=== PATIENT | female | born 1985 | race Asian ===

== ENCOUNTER 2020-06-18 09:08 | Inpatient (IN) ==
--- NOTE | 2020-06-18 09:55 | Emergency Department Note ---
Impression & Plan Confusion ED Provider Note Provider: Arnaud Wood MD DATE OF SERVICE: 06/18/2020 CHIEF COMPLAINT: Confusion and concentration issues HISTORY OF PRESENT ILLNESS: Patient is a 34-year-old female history of asthma and some seasonal allergies presenting here today with family friend reporting over the past approximately week or 2 onset of some confusion. Patient reports she just does not seem to be processing things is normally and having occasionally some difficulty with words in conversations. Evidently has been working fairly hard and not sleeping the best at night. Reports on this past Friday approximately 2 days ago did have a visit with Dr. Joyner at [facility] regarding this and started on low-dose 25 mg trazodone at night to help with sleep and initial thoughts were this is possibly sleep-related. Patient had some difficulty getting the appointment driving her car and as well as driving home to a condo per her report. Family friend verbalized that he was contacted the patient went to check on her at the patient's condo and the patient was having difficulty getting her car in the garage and having garage door closed on her car. This is highly uncharacteristic for the patient according both to the patient and her family friend. There is no history of similar reported in the past. Evident last 2 days has been staying with family friend and prickly overnight last night has been sleeping significantly better. Did on Friday night have a small fall out of bed but no significant trauma reported or significant head pain reported. No fevers reported or URI symptoms or neck pain. Patient denies significant numbness or tingling in the extremiti es or weakness in the extremities. Patient denies issues feeding herself but states her hands do feel may be just a little bit more clumsy. Denies acute visual changes or dizziness. Patient denies any nausea or abdominal episodes. Patient denies any drug or alcohol use. Denies any recent medication changes but did receive the Covid vaccine second dose several weeks ago although timing is a little bit unclear. Patient again has some slight limitation in clear history here. Patient denies a history of Covid. Patient denies significant caffeine usage but has a slight resting tremor has been present for some years. No significant family history of similar neurological presentations have been reported. REVIEW OF SYSTEMS: A total of 10 review of systems was obtained and negative except as stated above in the HPI. PAST MEDICAL HISTORY: As noted above MEDICATIONS: Reviewed home medication list FMH: Reported history of some skin issues. SOCIAL HISTORY: Works at the [employer], denies drug or alcohol use PHYSICAL EXAM: GENERAL: alert and oriented in no acute distress on stretcher although occasional little bit slow to respond to some questioning. Head: normocephalic and atraumatic EYES: No injection, discharge or icterus. PERRL, EOMI. NECK: Trachea midline. Supple. ENT: Mucous membranes pink and moist. LUNGS: Airway patent. No retractions. Breath sounds clear HEART: Regular rate and rhythm. No chest wall tenderness ABDOMEN: Soft and non-tender, without guarding or rebound. SKIN: Acyanotic, warm, dry, without rashes although some slight dry skin of the bilateral hands is noted. EXTREMITIES: Without swelling, tenderness or deformity NEUROLOGICAL: No aphasia the patient does have some slight deficits in clear recollection/memory of recent events as reported by family friend (this is a bit inconsistent on exam more pronounced and less pronounced at various times). No facial droop or slurred speech. Normal strength and tone in the extremities. Patient does have some difficulty with left [id number] and some ataxia here and actually had some difficulty understanding the directions but was able to perform this normally on the right hand. Rapid alternating movements of the bilateral hands without significant abnormality. Sensation to gross touch nor mal. No clonus appreciated in lower extremities. Psych: The patient denies any acute SI. She not responding to external stimuli does have some flattened affect. Denies hallucinations or voices. EK bpm normal sinus rhythm. No PVC or PAC. No acute ST segment elevation appreciated with a normal QTC. Right axis CONTINUOUS CARDIAC MONITORING: was ordered and showed a heart rate of 74 bpm in normal sinus rhythm GCS 15. Patient's laboratory studies and imaging reviewed. Differential includes Infection, dehydration, metabolic abnormality, hypo/hyperglycemia, electrolyte disturbance, anemia, hypoxia, cardiac sources, intracerebral event, toxicologic, neurologic, as well as other pathologies. IMPRESSION/MEDICAL DECISION MAKING: Patient is complaining of some mild recent cognitive delay and confusion issues. Left slight fall was noted the other day it was after the onset and unsure that this is truly significant to the recent illness. CT head was completed to exclude traumatic injury given she feel on Friday night however feel this is less likely. Patient denies any fever and is afebrile here. No significant infectious symptoms systemically been reported. Patient denies use of drugs or alcohol other substances that could be causing symptoms. Patient sleep is improved to the last night or 2 with the trazodone but other symptoms of some confusion have not. Does have some interesting issues with left [id number] as well as some difficulty at that time understanding it only with the left hand was able to do it well with the right hand. Broad differential and testing will be obtained including B12 level. Discussed with neurology ([facility] as the patient follows with [facility]) and an MRI with and without contrast will be obtained to exclude brain mass or other acute intracranial pathology. Does not appear to be experiencing meningeal signs or nuchal rigidity and I doubt this is acute bacterial meningitis. Patient while here did have some issues providing urine sample and she initially provided a sample of tap water. Patient did not appear to be suffering from acute serotonin syndrome on exam. Blood work without significant leukocytosis or anemia. Platelet count is normal. Negative . UDS negative. Thyroid function within normal limits. No signs of significant transaminitis. No severe electrolyte abnormality noted. Renal function at expected range. CT scan of the head without acute fractures or other intra-cranial abnormality noted. Patient was sent to MRI initially but evidently could not really comprehend the instructions and walked out of the magnet. Try to small amount of Ativan to see if this would help but patient still not able to follow commands and actually in the stretcher on the way back from MRI tried to jump out of the stretcher for the rim technician. Seen by neurology here in the emergency department. Neurology recommended given the change in mental status over the past week without other significant history obtaining the MRI with sedation if necessary and given the weekend factors infectious and was obtained without sedation today further observation in the hospital and the patient and patient's friend were in agreement with this plan. Did reach out with anesthesia who stated they should be able to form sedated MRI in the morning but were unable to perform this afternoon evening. No in-house psychiatric providers at this time of day when I called 3 S. Patient's presentation could very well be functional or psychiatric in nature however exclusion of organic medical process with MRI would be significantly helpful to ensure we do not miss a rare medical process. Hospitalist evaluated the patient and will further discuss with psychiatry. DIAGNOSIS: Confusion DISPOSITION: Hospitalist will evaluate Patient was agreeable with this plan. Past Med/Surg History Social History Smoking Status: Never smoker Hx Alcohol Use: No Hx Substance Use: No Preferred Language: Chinese Cleaning Technician Required: No Beliefs That Will Affect Care: None Current Living Situation: Other Current Living Situation Comment: With friend Jeannie Feels Safe at Home: Hesitant to Answer Assistive Devices: None Allergies Allergies Allergy/AdvReac Type Severity Reaction Status Date / Time No Known Allergies Allergy Unverified 06/18/20 10:02 Home Meds Home Medications Medication Instructions Recorded Confirmed trazodone 25 mg PO HS 06/18/20 06/18/20 Results & Data (ED) Vital Signs Vital Signs - 24 hr 06/18/20 09:13 06/18/20 09:57 06/18/20 10:24 Temperature 36.5 C Temperature Source Temporal Artery Scan Pulse Rate 87 73 Pulse Rate [Right] Pulse Rate from SpO2 Sensor 72 Pulse Rhythm [Right] Respiratory Rate 18 22 Respiratory Effort / Characteristics Non-Labored Respiratory Depth Normal Blood Pressure 121/78 123/78 Blood Pressure [Left Arm] Blood Pressure Mean 92 93 Blood Pressure Mean [Left Arm] Blood Pressure Position [Left Arm] Pulse Oximetry 97 98 96 Oxygen Delivery Method Room Air Room Air Sepsis Recent Fever Within 48 Hours No Sepsis New/Unexplained Change in Mental Status No Sepsis Action Taken by Nursing No Action Required 06/18/20 10:30 06/18/20 11:44 06/18/20 11:45 Temperature Temperature Source Pulse Rate 81 Pulse Rate [Right] Pulse Rate from SpO2 Sensor 73 76 Pulse Rhythm [Right] Respiratory Rate 20 Respiratory Effort / Characteristics Respiratory Depth Blood Pressure 122/85 116/88 Blood Pressure [Left Arm] Blood Pressure Mean 97 97 Blood Pressure Mean [Left Arm] Blood Pressure Position [Left Arm] Pulse Oximetry 100 98 98 Oxygen Delivery Method Sepsis Recent Fever Within 48 Hours Sepsis New/Unexplained Change in Mental Status Sepsis Action Taken by Nursing 06/18/20 12:00 06/18/20 13:30 06/18/20 13:31 Temperature Temperature Source Pulse Rate Pulse Rate [Right] 66 Pulse Rate from SpO2 Sensor 65 Pulse Rhythm [Right] Regular Respiratory Rate 18 Respiratory Effort / Characteristics Respiratory Depth Blood Pressure 129/89 Blood Pressure [Left Arm] 129/89 Blood Pressure Mean 102 Blood Pressure Mean [Left Arm] 102 Blood Pressure Position [Left Arm] Lying Pulse Oximetry 98 98 Oxygen Delivery Method Room Air Sepsis Recent Fever Within 48 Hours Sepsis New/Unexplained Change in Mental Status Sepsis Action Taken by Nursing 06/18/20 13:45 06/18/20 14:00 06/18/20 14:30 Temperature Temperature Source Pulse Rate 78 108 H 75 Pulse Rate [Right] Pulse Rate from SpO2 Sensor Pulse Rhythm [Right] Respiratory Rate 18 20 18 Respiratory Effort / Characteristics Respiratory Depth Blood Pressure Blood Pressure [Left Arm] Blood Pressure Mean Blood Pressure Mean [Left Arm] Blood Pressure Position [Left Arm] Pulse Oximetry Oxygen Delivery Method Sepsis Recent Fever Within 48 Hours Sepsis New/Unexplained Change in Mental Status Sepsis Action Taken by Nursing 06/18/20 14:33 06/18/20 15:50 Temperature Temperature Source Pulse Rate 81 Pulse Rate [Right] 74 Pulse Rate from SpO2 Sensor Pulse Rhythm [Right] Respiratory Rate 20 15 Respiratory Effort / Characteristics Respiratory Depth Blood Pressure 122/91 Blood Pressure [Left Arm] 120/80 Blood Pressure Mean 101 Blood Pressure Mean [Left Arm] 93 Blood Pressure Position [Left Arm] Pulse Oximetry 97 Oxygen Delivery Method Room Air Sepsis Recent Fever Within 48 Hours Sepsis New/Unexplained Change in Mental Status Sepsis Action Taken by Nursing Laboratory Data Result diagrams: 06/18/20 09:40 06/18/20 09:40 Lab Results 06/18/20 06/18/20 06/18/20 Range/Units 09:40 09:40 09:40 WBC 5.13 (4.8-10.8) K/uL RBC 4.76 (4.2-5.4) M/uL Hgb 14.9 (12.0-16.0) g/dL Hct 42.6 (37-47) % MCV 89.5 (80-100) fL MCH 31.3 (25-34) pg MCHC 35.0 (32-36) g/dL RDW Std Deviation 39.4 (36.4-46.3) fL RDW Coeff of Claudette 12.2 (11.5-14.5) % Plt Count 225 (130-400) K/uL MPV 9.3 (7.4-10.4) fL Immature Gran % (Auto) 0.4 % Neut % (Auto) 72.5 % Lymph % (Auto) 20.5 % Hendricks % (Auto) 5.8 % Eos % (Auto) 0.6 % Baso % (Auto) 0.2 % Neut # (Auto) 3.72 (1.4-6.5) K/uL Lymph # (Auto) 1.05 L (1.2-3.4) K/uL Hendricks # (Auto) 0.30 (0.11-0.59) K/uL Eos # (Auto) 0.03 (0-0.5) K/uL Baso # (Auto) 0.01 (0-0.2) K/uL Immature Gran # (Auto) 0.02 (0.00-0.02) K/uL Sodium 139 (136-145) mmol/L Potassium 3.8 (3.5-5.1) mmol/L Chloride 107 (98-107) mmol/L Carbon Dioxide 31 (21-32) mmol/L Anion Gap 2.0 L (3-11) BUN 11 (7-18) mg/dl Creatinine 0.72 (0.6-1.2) mg/dl Est Cr Clr Drug Dosing 86.4 ml/min Est GFR ( Amer) 128.4 Est GFR (Non-Af Amer) 110.8 BUN/Creatinine Ratio 14.9 (10-20) Glucose 76 (70-99) mg/dl Calcium 9.2 (8.5-10.1) mg/dl Magnesium 2.4 (1.8-2.4) mg/dl Total Bilirubin 0.7 (0.2-1) mg/dl AST 13 L (15-37) U/L ALT 17 (12-78) U/L Alkaline Phosphatase 53 (45-117) U/L Total Protein 7.9 (6.4-8.2) gm/dl Albumin 4.2 (3.4-5.0) gm/dl Globulin 3.7 (2.5-4.0) gm/dl Albumin/Globulin Ratio 1.1 (0.9-2) Vitamin B12 TSH 0.796 (0.300-4.500) uIu/ml HCG, Qual Negative (Negative) Urine Color Urine Appearance (Clear) Urine pH (4.5-7.5) Ur Specific Harmon (1.000-1.030) Urine Protein (Negative) Urine Glucose (UA) (Negative) Urine Ketones (Negative) Urine Blood (Negative) Urine Nitrite (Negative) Urine Bilirubin (Negative) Urine Urobilinogen (Negative) Ur Leukocyte Esterase (Negative) Urine WBC (Auto) (0-5) /hpf Urine RBC (Auto) (0-4) /hpf U Hyaline Cast (Auto) (0-5) /lpf U Epithel Cells (Auto) (0-5) /lpf Urine Bacteria (Auto) (Negative) Urine Yeast Urine Opiates Screen (Neg) Ur Methadone, Qual (Neg) Urine Barbiturates (Neg) Ur Phencyclidine (PCP) (Neg) U Amphetamin/Meth Scrn (Neg) MDMA (Ecstasy) Screen (Neg) U Benzodiazepines Scrn (Neg) Ur Cocaine Metabolite (Neg) U Marijuana (THC) Screen (Neg) COVID-19 Eval Order SARS-CoV-2 (PCR) (Negative) Influenza Type A (PCR) (Neg) Influenza Type B (PCR) (Neg) RSV (RT-PCR) (Neg) 06/18/20 06/18/20 06/18/20 Range/Units 10:12 10:17 10:17 WBC (4.8-10.8) K/uL RBC (4.2-5.4) M/uL Hgb (12.0-16.0) g/dL Hct (37-47) % MCV (80-100) fL MCH (25-34) pg MCHC (32-36) g/dL RDW Std Deviation (36.4-46.3) fL RDW Coeff of Claudette (11.5-14.5) % Plt Count (130-400) K/uL MPV (7.4-10.4) fL Immature Gran % (Auto) % Neut % (Auto) % Lymph % (Auto) % Hendricks % (Auto) % Eos % (Auto) % Baso % (Auto) % Neut # (Auto) (1.4-6.5) K/uL Lymph # (Auto) (1.2-3.4) K/uL Hendricks # (Auto) (0.11-0.59) K/uL Eos # (Auto) (0-0.5) K/uL Baso # (Auto) (0-0.2) K/uL Immature Gran # (Auto) (0.00-0.02) K/uL Sodium (136-145) mmol/L Potassium (3.5-5.1) mmol/L Chloride (98-107) mmol/L Carbon Dioxide (21-32) mmol/L Anion Gap (3-11) BUN (7-18) mg/dl Creatinine (0.6-1.2) mg/dl Est Cr Clr Drug Dosing ml/min Est GFR ( Amer) Est GFR (Non-Af Amer) BUN/Creatinine Ratio (10-20) Glucose (70-99) mg/dl Calcium (8.5-10.1) mg/dl Magnesium (1.8-2.4) mg/dl Total Bilirubin (0.2-1) mg/dl AST (15-37) U/L ALT (12-78) U/L Alkaline Phosphatase (45-117) U/L Total Protein (6.4-8.2) gm/dl Albumin (3.4-5.0) gm/dl Globulin (2.5-4.0) gm/dl Albumin/Globulin Ratio (0.9-2) Vitamin B12 Cancelled TSH (0.300-4.500) uIu/ml HCG, Qual (Negative) Urine Color Yellow Urine Appearance Clear (Clear) Urine pH 7.5 (4.5-7.5) Ur Specific Harmon 1.014 (1.000-1.030) Urine Protein Negative (Negative) Urine Glucose (UA) Negative (Negative) Urine Ketones Negative (Negative) Urine Blood 2+ H (Negative) Urine Nitrite Negative (Negative) Urine Bilirubin Negative (Negative) Urine Urobilinogen Negative (Negative) Ur Leukocyte Esterase 2+ H (Negative) Urine WBC (Auto) 10-30 H (0-5) /hpf Urine RBC (Auto) 0-4 (0-4) /hpf U Hyaline Cast (Auto) 1-5 (0-5) /lpf U Epithel Cells (Auto) >30 H (0-5) /lpf Urine Bacteria (Auto) 1+ H (Negative) Urine Yeast Not Reportable Urine Opiates Screen Neg (Neg) Ur Methadone, Qual Neg (Neg) Urine Barbiturates Neg (Neg) Ur Phencyclidine (PCP) Neg (Neg) U Amphetamin/Meth Scrn Neg (Neg) MDMA (Ecstasy) Screen Neg (Neg) U Benzodiazepines Scrn Neg (Neg) Ur Cocaine Metabolite Neg (Neg) U Marijuana (THC) Screen Neg (Neg) COVID-19 Eval Order SARS-CoV-2 (PCR) (Negative) Influenza Type A (PCR) (Neg) Influenza Type B (PCR) (Neg) RSV (RT-PCR) (Neg) 06/18/20 06/18/20 06/18/20 Range/Units 10:59 14:25 14:25 WBC (4.8-10.8) K/uL RBC (4.2-5.4) M/uL Hgb (12.0-16.0) g/dL Hct (37-47) % MCV (80-100) fL MCH (25-34) pg MCHC (32-36) g/dL RDW Std Deviation (36.4-46.3) fL RDW Coeff of Claudette (11.5-14.5) % Plt Count (130-400) K/uL MPV (7.4-10.4) fL Immature Gran % (Auto) % Neut % (Auto) % Lymph % (Auto) % Hendricks % (Auto) % Eos % (Auto) % Baso % (Auto) % Neut # (Auto) (1.4-6.5) K/uL Lymph # (Auto) (1.2-3.4) K/uL Hendricks # (Auto) (0.11-0.59) K/uL Eos # (Auto) (0-0.5) K/uL Baso # (Auto) (0-0.2) K/uL Immature Gran # (Auto) (0.00-0.02) K/uL Sodium (136-145) mmol/L Potassium (3.5-5.1) mmol/L Chloride (98-107) mmol/L Carbon Dioxide (21-32) mmol/L Anion Gap (3-11) BUN (7-18) mg/dl Creatinine (0.6-1.2) mg/dl Est Cr Clr Drug Dosing ml/min Est GFR ( Amer) Est GFR (Non-Af Amer) BUN/Creatinine Ratio (10-20) Glucose (70-99) mg/dl Calcium (8.5-10.1) mg/dl Magnesium (1.8-2.4) mg/dl Total Bilirubin (0.2-1) mg/dl AST (15-37) U/L ALT (12-78) U/L Alkaline Phosphatase (45-117) U/L Total Protein (6.4-8.2) gm/dl Albumin (3.4-5.0) gm/dl Globulin (2.5-4.0) gm/dl Albumin/Globulin Ratio (0.9-2) Vitamin B12 Cancelled TSH (0.300-4.500) uIu/ml HCG, Qual (Negative) Urine Color Urine Appearance (Clear) Urine pH (4.5-7.5) Ur Specific Harmon (1.000-1.030) Urine Protein (Negative) Urine Glucose (UA) (Negative) Urine Ketones (Negative) Urine Blood (Negative) Urine Nitrite (Negative) Urine Bilirubin (Negative) Urine Urobilinogen (Negative) Ur Leukocyte Esterase (Negative) Urine WBC (Auto) (0-5) /hpf Urine RBC (Auto) (0-4) /hpf U Hyaline Cast (Auto) (0-5) /lpf U Epithel Cells (Auto) (0-5) /lpf Urine Bacteria (Auto) (Negative) Urine Yeast Urine Opiates Screen (Neg) Ur Methadone, Qual (Neg) Urine Barbiturates (Neg) Ur Phencyclidine (PCP) (Neg) U Amphetamin/Meth Scrn (Neg) MDMA (Ecstasy) Screen (Neg) U Benzodiazepines Scrn (Neg) Ur Cocaine Metabolite (Neg) U Marijuana (THC) Screen (Neg) COVID-19 Eval Order [facility] at [facility] SARS-CoV-2 (PCR) NEGATIVE (Negative) Influenza Type A (PCR) Negative (Neg) Influenza Type B (PCR) Negative (Neg) RSV (RT-PCR) Negative (Neg) Administered Medications Multivitamins 10 ml/ Thiamine HCl 100 mg/ Folic Acid 1 mg/Sodium Chloride 1,011.2 mls @ 1,011.2 mls/hr IV .Q1H ONE Stop: 06/18/20 18:59 Last Admin: 06/18/20 18:25 Dose: 1,011.2 mls/hr Documented by: [id number] Discontinued Medications Lorazepam (Ativan) 0.5 mg in 1 mls @ 1 mls/min IV NOW STA Stop: 06/18/20 12:40 Last Admin: 06/18/20 12:46 Dose: 1 mls/min Documented by: [id number] Olanzapine (Olanzapine Zydis 5 Mg Orally Dis. Tab) 5 mg PO ONE ONE Stop: 06/18/20 15:40 Last Admin: 06/18/20 15:50 Dose: 5 mg Documented by: [id number] Discharge Plan Visit Data Chief Complaint: Neuro Symptoms/Deficit Stated Complaint: CONFUSION, COGNITIVE PROBLEM, MOTOR MOVEMENT ED Provider: Arnaud Wood Discharge Problem: Confusion Patient Disposition: Admitted As Inpatient Discharge Instructions Interventions: ED Discharge Assessment Last Done: 06/18/20 16:52
[2020-06-18 10:02] LABS: Basophils # (auto) 0.01 K/uL (0-0.2); Basophils % (auto) 0.2 %; Eosinophils # (auto) 0.03 K/uL (0-0.5); Eosinophils % (auto) 0.6 %; Hematocrit (blood only) 42.6 % (37-47); Hemoglobin 14.9 g/dL (12.0-16.0); Immature Granulocytes # (auto) 0.02 K/uL (0.00-0.02); Immature Granulocytes % (auto) 0.4 %; Lymphocytes # (auto) 1.05 K/uL (1.2-3.4); Lymphocytes % (auto) 20.5 %; Mean Corpuscular Hemoglobin 31.3 pg (25-34); Mean Corpuscular Volume 89.5 fL (80-100); Mean Platelet Volume 9.3 fL (7.4-10.4); Monocytes % (auto) 5.8 %; Neutrophils # (auto) 3.72 K/uL (1.4-6.5); Neutrophils % (auto) 72.5 %; Platelet Count 225 K/uL (130-400); RDW Coefficient of Variation 12.2 % (11.5-14.5); RDW Standard Deviation 39.4 fL (36.4-46.3); Red Blood Count 4.76 M/uL (4.2-5.4); White Blood Count 5.13 K/uL (4.8-10.8)
[2020-06-18 10:14] LABS: Pregnancy Test, Serum Negative (Negative)
--- NOTE | 2020-06-18 10:18 | XRay Report ---
XR chest 1V portable HISTORY: 34 years-old Female weakness acute weakness COMPARISON: None TECHNIQUE: Portable AP view of the chest FINDINGS: Cardiomediastinal and hilar silhouettes are within normal limits. No pneumothorax, pleural effusion, airspace consolidation or overt pulmonary edema. The bones of the chest appear grossly intact. IMPRESSION: No acute process. ACT 112: Negative or not required by law. The above report was generated using voice recognition software. It may contain grammatical, syntax o r spelling errors. Electronically signed by: Thanh Reddy M.D. 06/18/2020 10:16 AM
[2020-06-18 10:27] LABS: Albumin Globulin Ratio 1.1 (0.9-2); Albumin Level 4.2 gm/dl (3.4-5.0); BUN Creatinine Ratio 14.9 (10-20); Bilirubin,Total 0.7 mg/dl (0.2-1); Calcium 9.2 mg/dl (8.5-10.1); Creatinine Clr Calc Pharmacy 86.4 ml/min; Est GFR (African American) 128.4; Est GFR (Non-African American) 110.8; Globulin 3.7 gm/dl (2.5-4.0); Magnesium 2.4 mg/dl (1.8-2.4); Potassium 3.8 mmol/L (3.5-5.1); Thyroid Stimulating Hormone 0.796 uIu/ml (0.300-4.500); Total Protein 7.9 gm/dl (6.4-8.2)
[2020-06-18 10:39] LABS: Appearance Urine Clear (Clear); Bilirubin Urine Negative (Negative); Blood Urine 2+ (Negative); Color Urine Yellow; Epithelial Cell Urine Auto >30 /lpf (0-5); Glucose Urine UA Negative (Negative); Ketones Urine Negative (Negative); Leukocyte Esterase Urine 2+ (Negative); Nitrite Urine Negative (Negative); Protein Urine Negative (Negative); RBC Urine Automated 0-4 /hpf (0-4); Specific Gravity Urine 1.014 (1.000-1.030); Urobilinogen Urine Negative (Negative); pH Urine 7.5 (4.5-7.5)
[2020-06-18 11:04] LABS: Bacteria Urine Automated 1+ (Negative)
[2020-06-18 11:15] LABS: Amphetamines+Metham, Urine Neg (Neg); Barbiturates, Urine Neg (Neg); Benzodiazepine, Urine Neg (Neg); Cocaine, Urine Neg (Neg); MDMA (Ecstacy), Urine Neg (Neg); Methadone, Urine Neg (Neg); Opiate, Urine Neg (Neg); Phencyclidine, Urine Neg (Neg)
--- NOTE | 2020-06-18 11:25 | Neurology Consultation ---
Date of Consultation June 18, 2020 Assessment & Plan (1) Altered mental status: Brooklynn Beverly is a 34yo woman w/ PMH of asthma and seasonal allergies who p/t [facility] with subacute onset of confusion, poor sleep, mild ataxia and difficulty performing ADLs. # Subacute AMS a/w ataxia: c/f underlying metabolic/toxic cause vs encephalitis (autoimmune, unlikely infectious given time course of symptom onset over several weeks). Recommend admission as she will need sedation to safely get MRI brain and LP performed to complete workup of organic causes. - MRI brain w/ and w/o to look for signs of autoimmune encephalitis - B12, TSH, UDS, basic labs. If this is unremarkable, would also check thiamine, ammonia, heavy metals and strongly consider obtaining an LP with cell counts, glucose, protein, CSF biofire, autoimmune encephalitis panel. - routine EEG if above unremarkable to r/o NCSE or seizure tendency - would also obtain a psych consult as this could potentially represent depression with psychosis and functional tremor Thank you for this interesting consult. Plan of care discussed with primary team. Please call or text with questions. History of Present Illness History of Present Illness Brooklynn Beverly is a 34yo woman w/ PMH of asthma and seasonal allergies who p/t [facility] with subacute onset of confusion, poor sleep, mild ataxia and difficulty performing ADLs. In the ED, she was afebrile, BP 122/85, heart rate 81, respiratory rate 20, satting 100% on room air. Labs notable for WBC 5.13, hemoglobin 14.9 with MCV 89.5, platelets 225, BMP within normal with GFR 110.8, LFTs within normal, calcium/magnesium within normal, glucose 76, TSH within normal, urine negative, B12 pending, UA possible UTI given positive bacteria and leukoesterase but no nitrates, UDS negative. Chest x-ray unremarkable. CTH shows no hemorrhage or hypodensities. Unable to tolerate MRI (kept jumping out of scanner even with mild sedation/ativan). On examination, she reports that she is worried about COVID brain fog and nightmares that started after she got the COVID vaccine. Denies actually ever having COVID that she is aware of. Also notes that she has been having issues with poor sleep, poor PO intake and new onset tremor in her arms and legs that makes it difficult to do daily activities. Notes that she was started on trazodone recently with worsening of nightmares. Extremely tangential and would sometimes not respond to questions appropriately. She does endorse feeling sad at times but could not elaborate and became tangential. Denies any recent stressors. Denies taking any supplements, illicits. Allergies Allergy/AdvReac Type Severity Reaction Status Date / Time No Known Allergies Allergy Unverified 06/18/20 10:02 Home Medications Medication Instructions Recorded Confirmed Type trazodone 25 mg PO HS 06/18/20 06/18/20 History Patient History Social History Smoking Status: Never smoker Feels Safe at Home: Yes Review of Systems Review of Systems: 14 point review of systems completed and negative except as in HPI. Exam (Neuro) Physical Exam: General Exam: GEN: NAD, sitting in bed. HEENT: No conjunctival injection, no rhinorrhea. CV: RRR, no peripheral edema PULM: Nonlabored respirations on room air. Neuro Exam: MS: Awake and Alert. Oriented to person, place, and month/year. Speech fluent and appropriate without dysarthria or paraphasic errors. Language intact including naming, comprehension, repetition. Cognition and memory mildly impaired. Very inattentive, tangential. No neglect. CN: Visual guy full. No extinction to double simultaneous stimuli. No optic disc edema on fundoscopic exam. PERRLA OU. EOMI without nystagmus. Facial sensation intact to LT. Facial muscles full and symmetric. Hearing intact to conversation. Shoulder shrug normal. Tongue midline. MOTOR: Normal bulk and tone. No pronator drift. BUE strength 5/5 at deltoids, biceps, triceps, wrist flexors and extensors, and hand grasp bilaterally. BLE strength 5/5 at iliopsoas, hamstrings, quadriceps, tibialis anterior, and gastrocnemius bilaterally. REFLEXES: 2+ at biceps, triceps, brachioradialis, 2+ patella and Achilles bilaterally. Flexor plantar responses bilaterally. SENSORY: Intact to LT without extinction to double simultaneous stimuli. Vibration intact throughout. COORDINATION: Mild dysmetria or ataxia on [id number] bilaterally. Normal Aleida bilaterally. +intermittent, inconsistent fine high frequency tremor in bilateral hands and legs, worse with movement but also occurring at rest GAIT: deferred given physical status (was seen to walk around room normal earlier) Results & Data ([facility]) Vital Signs (Past 12 Hours) Vital Signs Temp Pulse Resp BP Pulse Ox 06/18/20 10:30 81 20 122/85 100 06/18/20 10:24 73 22 123/78 96 06/18/20 09:57 98 06/18/20 09:13 36.5 C 87 18 121/78 97 PG Care Time/CCT Total # of Minutes Spent Total Time Spent with Patient: Total time spent is greater than 50% in coordination of care (as documented) at patient's floor/unit and/or counseling patient: Coding Level of Care Code 41032 Inpt Consult Level 5 Diagnoses Altered mental status R41.82
--- NOTE | 2020-06-18 11:54 | CT Scan Report ---
CT head/brain wo con CLINICAL HISTORY: 34 years-old Female with fall, confusion. Acutely altered mental status with fall. Head trauma. TECHNIQUE: Multiple axial CT images of the head were obtained without contrast. A dose lowering tech nique was utilized adhering to the principles of ALARA. CT DOSE: 537.48 mGy.cm COMPARISON: None. FINDINGS: No acute intracranial hemorrhage, midline shift, intracranial mass, hydrocephalus, territorial ischem ia or abnormal extra-axial collection. The calvarium is intact. The paranasal sinuses, mastoid air cells, and middle ear cavities are clear . IMPRESSION: No acute intracranial abnormality or calvarial fracture. ACT 112: Negative or not required by law. The above report was generated using voice recognition software. It may contain grammatical, syntax o r spelling errors. Electronically signed by: Thanh Reddy M.D. 06/18/2020 11:52 AM
[2020-06-18] MEDS ORDERED: LORazepam 0.5 MG/1 ML VIAL IV STA (12:39)
--- NOTE | 2020-06-18 15:16 | Electrocardiogram Report ---
Test Reason : Blood Pressure : / mmHG Vent. Rate : 065 BPM Atrial Rate : 065 BPM P-R Int : 162 ms QRS Dur : 080 ms QT Int : 400 ms P-R-T Axes : 070 097 075 degrees QTc Int : 416 ms Normal sinus rhythm Rightward axis Low voltage QRS Borderline ECG No previous ECGs available Confirmed by Yuniel Niño ([id number]) on 06/18/2020 3:16:02 PM Referred By: REFERRED SELF Confirmed By:Yuniel Niño
[2020-06-18 15:24] LABS: Influenza A virus by PCR Negative (Neg); Influenza B virus by PCR Negative (Neg); RSV by PCR Negative (Neg); SARS CoV2 RNA(COVID-19) InHosp NEGATIVE (Negative)
[2020-06-18] MEDS ORDERED: OLANZapine ZYDIS 5 MG ORALLY DIS. TAB PO ONE (15:39)
--- NOTE | 2020-06-18 15:54 | History & Physical Report ---
Date of Service June 18, 2020 Assessment & Plan (1) Confusion: Patient will be brought in medically she will a psychology consult she is on a one-to-one therapy work attempting some Zyprexa help control her behavior to pursue MRI scan as recommended by neurology. Remainder of the work-up has been completed exception of B12 and lumbar puncture. The patient is not exhibiting any signs or symptoms of meningitis at this time and there was some discussion of encephalitis. I currently would call out to neurology to determine if she wishes to initiate any therapy since we cannot achieve these diagnostic studies at this time due to lack of consent for sedation. Patient comes down with his apraxia we will try to pursue the MRI scan without sedation. May also consider lumbar puncture if she is able to be controlled with antipsychotic medications via radiology guidance Patient be given a banana bag continue on thiamine high-dose for 3 days. B12 and B6 are sent Talk screen is negative patient denies additional medications. She only took 1 dose of trazodone. Currently her symptoms seem to precede this. Her caregiver who works in our psychiatric unit, Jeannie Childs, was not present If the Zyprexa helps we will continue this medication I did personally speak on the phone to Dr. Kim who states we may also able to use some benzodiazepines if need be (2) Urinary tract infection: Urinary tract infection by urinalysis being abnormal 2+ blood 2+ leukocyte esterase will initiate Rocephin therapy History of Present Illness Primary Care Provider: Thien Joyner MD Patient arrived at the ER in company of her friend she is having unusual behavior similar to what would be considered with psychosis. Was seen by neurology who describes some ataxic episodes I did not see any of that when I evaluated her. He has tangential thinking frequently stopping in the middle of sentences and then changing subjects in an odd way. 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 She says she is had sleep deprivation for a long period of time. Most recently she was prescribed trazodone by her primary care provider patient was able to produce her trazodone bottle in the ER it looks like she took 1 pill of 25 mg the remainder of the pills are in the bottle. Emergency department physician attempted to get MRI scan per re commendations from neurology but she was unable to stay still for the MRI. There was some discussion about doing a sedated MRI but there is some concern that she may not be fit to consent for anesthesia to do the MRI or lumbar puncture. Patient did have a negative CT scan of her head and negative serologies exception of possible urinary tract infection present on admission. Allergies Allergy/AdvReac Type Severity Reaction Status Date / Time No Known Allergies Allergy Unverified 06/18/20 10:02 Home Medications Medication Instructions Recorded Confirmed Type trazodone 25 mg PO HS 06/18/20 06/18/20 History Past Med/Surg History Social History Smoking Status: Never smoker Feels Safe at Home: Yes Review of Systems Review of Systems: Unobtainable due to cognitive status Mild distress and fatigue no headache, blurry or double vision no speech or swallowing issues no chest pain, pressure or palpitations no shortness of breath, cough or wheezes no abdominal pain, nausea or vomiting, diarrhea or constipation no dysuria, hematuria or frequency no focal joint pain or swelling no back pain, CVA tenderness or radicular pain no bruising, bleeding or rashes no focal signs of weakness or numbness Patient is altered sensation frequently not completing thoughts having some tremulousness and facial twitching she is anxious pacing about the room not able to sit still she says she feels like she is in a fog n Physical Exam Physical Exam: The patient appeared thin but well kept. She is scratching her hands she is very dry skin Vital signs as documented. Head exam is normocephalic atraumatic no scleral icterus Neck is without JVD, thyromegaly, or carotid bruits. Meningeal signs Lungs are clear to auscultation, no focal loss of breath sounds Cardiac exam, Rhythm is regular.. No murmurs, rubs or gallops. Abdominal exam reveals normal bowel sounds, soft non tender, no masses states she is got normal menses negative urine test and has no urine symptoms Extremities are nonedematous and both pedal pulses are present Neurologic exam is alert and oriented, she has tangential thinking she is pacing about the room she is scratching her arms and hands Skin is without bruises or rashes Psychologically is with turns for psychosis Results & Data Results & Data ([facility]) Vital Signs (Past 12 Hours) Vital Signs Temp Pulse Pulse Resp BP BP Pulse Ox 06/18/20 15:50 74 15 120/80 97 06/18/20 14:33 81 20 122/91 06/18/20 14:30 75 18 06/18/20 14:00 108 H 20 06/18/20 13:45 78 18 06/18/20 13:31 129/89 06/18/20 13:30 66 18 129/89 98 06/18/20 12:00 98 06/18/20 11:45 98 06/18/20 11:44 116/88 98 06/18/20 10:30 81 20 122/85 100 06/18/20 10:24 73 22 123/78 96 06/18/20 09:57 98 06/18/20 09:13 97.7 F 87 18 121/78 97 PG Care Time/CCT Total # of Minutes Spent Total Time Spent with Patient: Total time spent is greater than 50% in coordination of care (as documented) at patient's floor/unit and/or counseling patient: Coding Level of Care Code 91514 Initial Inpt Care Lvl 3 Diagnoses Confusion R41.0 Urinary tract infection N39.0
[2020-06-18] MEDS ORDERED: ALUMINUM/MAGNESIUM SUSP 30 ML UDC PO PRN (17:15)
[2020-06-18] MEDS ORDERED: LORazepam 1 MG/2 ML VIAL IV PRN (17:15)
[2020-06-18] MEDS ORDERED: ONDANSETRON INJ 2 MG/ML 2 ML VIAL IV PRN (17:15)
[2020-06-18] MEDS ORDERED: ACETAMINOPHEN 325 MG TAB PO PRN (17:15)
[2020-06-18] MEDS ORDERED: diazePAM 5 MG TABLET PO ONE (17:15)
[2020-06-18] MEDS ORDERED: MULTI-VITAMIN INFUSION 10 ML, THIAMINE HCL 100 MG, FOLIC ACID 1 MG in SODIUM CHLORIDE 0... IV ONE (18:00)
[2020-06-18] MEDS: cefTRIAXone SODIUM 2,000 MG in DEXTROSE 5% 50 ML IV SCH (20:13)
[2020-06-18] MEDS: THIAMINE HCL 500 MG in SODIUM CHLORIDE 0.9% 50 ML IV SCH (21:20)
--- NOTE | 2020-06-19 07:51 | Magnetic Resonance Report ---
Brain MRI WITHOUT CONTRAST HISTORY: Confusion. eval for encephalitis TECHNIQUE: Multiplanar multisequence MRI of the brain was performed without the use of contrast. COMPARISON STUDY: Head CT 06/10/2020. FINDINGS: There are no areas of restricted diffusion to suggest acute infarction. The midline structu res are intact. The paranasal sinuses are clear. The mastoid air cells are clear. The ventricles and sulci are within normal limits for age. There is no mass, hematoma, midline shift. The major vascular flow-voids at the skull base are well maintained. IMPRESSION: No acute intracranial abnormality. ACT 112: Negative or not required by law. Electronically signed by: Donovan Thompson M.D. 06/19/2020 7:50 AM
[2020-06-19 08:22] LABS: Albumin Level 3.8 gm/dl (3.4-5.0); BUN Creatinine Ratio 21.2 (10-20); Calcium 8.8 mg/dl (8.5-10.1); Creatinine Clr Calc Pharmacy 113.1 ml/min; Est GFR (African American) 143.8; Est GFR (Non-African American) 124.1; Potassium 3.7 mmol/L (3.5-5.1)
[2020-06-19 08:25] LABS: Albumin Globulin Ratio 1.4 (0.9-2); Bilirubin,Total 0.8 mg/dl (0.2-1); Globulin 2.8 gm/dl (2.5-4.0); Total Protein 6.6 gm/dl (6.4-8.2)
[2020-06-19] MEDS ORDERED: diazePAM 5 MG TABLET PO ONE ×2 (10:30→13:45)
[2020-06-19] MEDS: THIAMINE HCL 500 MG in SODIUM CHLORIDE 0.9% 50 ML IV SCH ×3 (11:04→21:38)
--- NOTE | 2020-06-19 11:34 | Neurology Progress Note ---
Date of Service June 19, 2020 Assessment & Plan (1) Altered mental status: Persistent alteration in mental status. Appears to have a mild to moderate encephalopathy. No significant abnormalities identified on recent noncontrast brain MRI. I agree with Dr. Wood's assessment yesterday. Encephalitis and nonconvulsive seizures should be excluded. I have ordered an EEG. Would also recommend completion of lumbar puncture as recommended by Dr. Wood, please refer to her consultation report from yesterday for further details. Admission and Anticipated Discharge Date Admission Date: June 18, 2020 Subjective Follow-up for altered mental status The patient is a 34-year-old female who was evaluated yesterday in neurological consultation by Dr. Wood for altered mental status characterized by confusion and difficulty with casual conversation. She reportedly has some difficulty getting her car from the garage as well and accidentally closed the garage door on her car. She complains of feeling a little clumsy or incoordinated and has been exhibiting a slight tremor. The patient relays a history of chronic insomnia, although worse over the past few weeks. She was recently given a prescription for trazodone. I did independently review the recently completed brain MRI. There is no evidence of acute or subacute abnormality. Diffusion-weighted images unremarkable. Coronal FLAIR images unremarkable. Normal appearing brain parenchyma. No evidence of stroke or hemorrhage. No evidence of demyelinating disease. Dr. Wood had also suggested obtaining an EEG and lumbar puncture. These tests have not been completed. Review of Systems Constitutional: no fever and no chills Eyes: no blind spots and no diplopia Ear, Nose, Mouth, Throat: no hearing loss Neurologic: + tremor(s), + confusion and + memory loss; no gait abnormality, no localized weakness, no loss of sensation and no headache(s) Results & Data ([facility]) Vital Signs (Past 12 Hours) Vital Signs Temp Pulse Resp BP Pulse Ox 06/19/20 07:27 36.3 C L 73 16 101/68 100 Laboratory Results WBC 5.13, hemoglobin 14.9, hematocrit 42.6, platelet count 225, sodium 142, potassium 3.7, BUN 12, creatinine 0.55, glucose 71, AST 9, ALT 13, ammonia 24.9, vitamin B12 519, TSH 0.796, urine tox screen negative. Diagnostic Findings Patient's brain MRIs as described above. Exam (Neuro) Constitutional: well developed and well nourished; no acute distress Neurologic: Oriented to:: Person and Place; negative Time Cortical Function: negative Neglect of Body Part and Visual Inattention Memory: negative Short Term Intact Attention: negative Span Intact and Concentration Intact Language: negative Naming Objects Speech Fluency: negative Dysarthria and Limited Comprehension Speech Aphasia: negative Aphasia Fund of Knowledge: Vocabulary Cranial Nerves: Normal II, III, IV, , V, VII, VIII, IX, X, XI and XII Motor Strength: Normal Lower Extremities and Normal Upper Extremities Motor Tone: Normal Lower Extremities and Normal Upper Extremities Muscle Bulk/Involuntary Movements: negative No Involuntary Movements (Occasional involuntary jerking movements of the hands) Sensation: Light Touch Intact and Proprioception Intact Coordination: Normal; negative Limited Balance, Dysdiadochokinesia, Finger-Nose Abnormal and Heel-Vega Abnormal Deep Tendon Reflexes: Rt Biceps: 2+, Lt Biceps: 2+, Rt Patellar: 2+ and Lt Patellar: 2+ Gait: Normal Station and Gait Details: Patient has difficulty following multistep commands. Patient's attention span is reduced. She becomes easily confused. She performed poorly with testing of delayed recall. She was unable to spell world backwards and made some unusual letter and number substitutions. PG Care Time/CCT Total # of Minutes Spent Total Time Spent with Patient: Total time spent is greater than 50% in coordination of care (as documented) at patient's floor/unit and/or counseling patient: Coding Level of Care Code 49031 Subseq Hosp Care Lvl 3 Diagnoses Altered mental status R41.82
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
--- NOTE | 2020-06-19 13:59 | Electroencephalogram ---
EEG Procedure Note Date of Service June 19, 2020 Start / End Times Start Time: 12:42 PM End Time: 1:02 PM Referring Physician Jose Maria Jacome MD History encephalopathy Home Medication List Medication Instructions Recorded Confirmed Type trazodone 25 mg PO HS 06/18/20 06/18/20 History Inpatient Medication List Ceftriaxone Sodium 2,000 mg/ (Dextrose) 70 mls @ 100 mls/hr IV Q24H [facility]; Protocol Stop: 06/23/20 17:59 Last Infusion: 06/18/20 21:22 Dose: 0 mls/hr Documented by: [id number] Infusion: 06/18/20 20:48 Dose: 100 mls/hr Documented by: [id number] Infusion: 06/18/20 20:18 Dose: 0 mls/hr Documented by: [id number] Admin: 06/18/20 20:13 Dose: 100 mls/hr Documented by: [id number] Thiamine HCl 500 mg/ Sodium (Chloride) 55 mls @ 208 mls/hr IV TID [facility] Stop: 06/21/20 20:59 Last Infusion: 06/19/20 11:20 Dose: 0 mls/hr Documented by: [id number] Admin: 06/19/20 11:04 Dose: 208 mls/hr Documented by: [id number] Infusion: 06/18/20 21:35 Dose: 0 mls/hr Documented by: [id number] Admin: 06/18/20 21:20 Dose: 208 mls/hr Documented by: [id number] Discontinued Medications Diazepam (Diazepam 5 Mg Tablet) 5 mg PO NOW ONE Stop: 06/18/20 17:16 Last Admin: 06/18/20 21:02 Dose: 5 mg Documented by: [id number] Diazepam (Diazepam 5 Mg Tablet) 5 mg PO 1345 ONE Stop: 06/19/20 13:46 Last Admin: 06/19/20 13:49 Dose: 5 mg Documented by: [id number] Lorazepam (Ativan) 0.5 mg in 1 mls @ 1 mls/min IV NOW STA Stop: 06/18/20 12:40 Last Admin: 06/18/20 12:46 Dose: 1 mls/min Documented by: [id number] Multivitamins 10 ml/ Thiamine HCl 100 mg/ Folic Acid 1 mg/Sodium Chloride 1,011.2 mls @ 1,011.2 mls/hr IV .Q1H ONE Stop: 06/18/20 18:59 Last Infusion: 06/18/20 19:29 Dose: 0 mls/hr Documented by: [id number] Admin: 06/18/20 18:25 Dose: 1,011.2 mls/hr Documented by: [id number] Olanzapine (Olanzapine Zydis 5 Mg Orally Dis. Tab) 5 mg PO ONE ONE Stop: 06/18/20 15:40 Last Admin: 06/18/20 15:50 Dose: 5 mg Documented by: [id number] Description This is a 21 electrode EEG with a single channel dedicated to limited EKG. The electrodes were placed in accordance with the International 10-20 system. There is a posterior dominant rhythm of 10 Hz which is symmetrically distributed and attenuates with eye opening. There is a normal anterior to posterior organization. Photic stimulation is unremarkable. Hyperventilation is not performed. There is a symmetric frontal beta rhythm. There is occasional movement artifact scattered throughout the study. There is no focal or lateralized slowing. No epileptiform abnormalities. Interpretation Normal-appearing awake/drowsy EEG. A normal EEG does not completely exclude a diagnosis of seizure disorder. Further clinical correlation may be needed. [facility] EEG Procedure Codes Indication for Procedure (1) Altered mental status: Neurology Neurology: [id number] EEG include record awake & drowsy
[2020-06-19] MEDS ORDERED: ACETAMINOPHEN 500 MG TAB PO PRN (15:21)
--- NOTE | 2020-06-19 15:26 | Fluoroscopy Report ---
FL lumbar puncture diagnostic CLINICAL HISTORY: 34 years-old Female with altered mental status. Acutely altered mental status PROCEDURE: Due to the altered mental status, the patient was unable to give informed consent. No reed r of privacy attorney was made available. Dr. Shipman and myself spoke and deemed that the procedure was medica lly necessary to proceed. The patient was placed prone on the fluoroscopy table. The lower back was p repped and draped in the usual sterile fashion. 1% lidocaine was used for local anesthesia. A 20-gaug e spinal needle was inserted into the L3-L4 interlaminar space, and approximately 10 cc of clear colo rless cerebrospinal fluid was removed and sent to the lab for analysis. The patient had difficulty fo llowing commands and periodically tried to move and get up during the exam and otherwise tolerated [facility] procedure well.. There were no immediate complications. The patient was then transported back to [facility] floor for continued treatment and observation. Fluoroscopy time: 0.3 minutes. IMPRESSION: Fluoroscopic guided lumbar puncture with removal of approximately 10 cc of cerebrospinal fluid. There were no immediate complications. ACT 112: Negative or not required by law. The above report was generated using voice recognition software. It may contain grammatical, syntax o r spelling errors. Electronically signed by: Thanh Reddy M.D. 06/19/2020 3:24 PM
[2020-06-19 15:39] LABS: Appearance CSF Clear; CSF Count Tube # 3; CSF Xanthrochromic No xanthochromia; Color CSF Colorless; Red Blood Cell CSF (A) 0 /uL (0-); Red Blood Cell CSF (B) 1 /uL (0-); White Blood Cell CSF (A) 0 /uL (0-5); White Blood Cell CSF (B) 1 /uL (0-5)
[2020-06-19 15:46] LABS: CSF Glucose 50 mg/dl (40-70); Total Protein CSF 31.5 mg/dl (15-45)
[2020-06-19 17:05] LABS: CSF Chemistry Tube # 1
[2020-06-19 17:06] LABS: Cryptococcus neoformans/ga PCR Not Detected (NotDetected); Cytomegalovirus PCR Not Detected (NotDetected); Enterovirus PCR Not Detected (NotDetected); Escherichia coli K1 PCR Not Detected (NotDetected); Haemophilius influenzae PCR Not Detected (NotDetected); Herpes Simplex Virus 1 PCR Not Detected (NotDetected); Herpes Simplex Virus 2 PCR Not Detected (NotDetected); Human Herpes Virus 6 PCR Not Detected (NotDetected); Human Parechovirus PCR Not Detected (NotDetected); Listeria monocytogenes PCR Not Detected (NotDetected); Neisseria meningitidis PCR Not Detected (NotDetected); Streptococcus agalactiae PCR Not Detected (NotDetected); Streptococcus pneumoniae PCR Not Detected (NotDetected); Varicella Zoster Virus PCR Not Detected (NotDetected)
[2020-06-19] MEDS: cefTRIAXone SODIUM 2,000 MG in DEXTROSE 5% 50 ML IV SCH (17:47)
--- NOTE | 2020-06-19 19:14 | Hospitalist Progress Note ---
Date of Service June 19, 2020 Assessment & Plan (1) Confusion: Thus far extensive w/u negative. MRI brain wnl. LP obtained today -- 0 WBCs; 0 RBCS. Glucose/protein wnl. No evidence of infectious/inflammatory state in the CSF. Urine culture thus far negative. EEG negative. Psych does not feel this is primary psychiatric in origin although she does endorse anxiety. B12 level wnl. Ammonia level wnl. TSH level wnl. RPR negative. Cortisol wnl. Check B1. Check Lyme IgG and IgM. Check heavy metal screen. MS panel from CSF sent but likely to be normal given her normal total protein and fluid studies. COVID negative but could consider repeating and/or getting COVID ab's ("brain fog" is common post-COVID). (2) Urinary tract infection: Possible. Continue rocephin until final culture results become available. Admission and Anticipated Discharge Date Admission Date: June 18, 2020 Subjective patient awake/alert during the visit. 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 she has had challenges at work as well (works at [employer]). states it feels like there is a wire in her brain that "needs to be moved" (or switched) and if she could things would be better. no fevers/chills. Review of Systems Constitutional: no anorexia and no weight loss Ear, Nose, Mouth, Throat: no nasal congestion and no sore throat Respiratory: no cough and no dyspnea Cardiovascular: no chest pain Gastrointestinal: no abdominal pain, no nausea and no vomiting Genitourinary: no dysuria Physical Exam Constitutional: well developed, well nourished and + altered mental status (episodic during the visit ); no acute distress Eyes: PERRL; no nystagmus ENMT: external ear and nose normal, oropharynx normal Respiratory: normal respiratory effort, lungs clear to auscultation Cardiovascular: RRR, no murmur, no edema Heart Sounds: normal S1 and normal S2 Vessels: posterior tibial pulses present and dorsalis pedis pulses present; no JVD Gastrointestinal (Abdomen): normal bowel sounds, soft, nontender, no hepatosplenomegaly Skin: no rashes, warm and dry Neurologic: deep tendon reflexes 2+ bilaterally and moves all extremities; no focal motor deficits Speech / Cognition: normal speech Results & Data Results & Data ([facility]) Vital Signs (Past 12 Hours) Vital Signs Temp Pulse Resp BP BP Pulse Ox 06/19/20 17:39 36.9 C 75 16 107/73 91 06/19/20 17:07 36.7 C 64 16 112/78 97 06/19/20 16:41 36.8 C 67 16 114/71 93 06/19/20 16:24 36.8 C 71 16 104/61 99 06/19/20 15:28 36.8 C 90 16 120/83 90 06/19/20 07:27 36.3 C L 73 16 101/68 100 Laboratory Results Laboratory Results - last 24 hr 06/18/20 06/19/20 06/19/20 19:40 07:08 07:08 Sodium 142 Potassium 3.7 Chloride 113 H Carbon Dioxide 24 Anion Gap 5.0 BUN 12 Creatinine 0.55 L Est Cr Clr Drug Dosing 113.1 Est GFR ( Amer) 143.8 Est GFR (Non-Af Amer) 124.1 BUN/Creatinine Ratio 21.2 H Glucose 71 Calcium 8.8 Total Bilirubin 0.8 AST 9 L ALT 13 Alkaline Phosphatase 43 L Ammonia Total Protein 6.6 Albumin 3.8 Globulin 2.8 Albumin/Globulin Ratio 1.4 Vitamin B6 Pending Cortisol AM Sample Ur [place] Porphobilinogen Pending U Porphobilinogen Intrp Pending Fld Lyme DNA (PCR) Fluid Comment CSF Appearance CSF Color Xanthrochromic CSF WBC CSF RBC CSF Cell Count Tube # CSF Chemistry Tube # CSF Glucose CSF Total Protein CSF Albumin CSF IgG CSF IgG Index CSF IgG Synthesis Rate CSF Myelin Basic Protein CSF IgG Oligoclonal Bnd CSF C.neoform/gat PCR CSF CMV DNA (PCR) CSF Enterovirus (PCR) CSF E. coli K1 (PCR) CSF H. influenzae (PCR) CSF HSV I (PCR) CSF HSV II (PCR) CSF HHV 6 (PCR) CSF L.monocytogenes PCR CSF N. meningitidis PCR CSF Parechovirus (PCR) CSF S. agalactiae (PCR) CSF S. pneumoniae (PCR) CSF VZV DNA (PCR) IgG Albumin (CHIDI) UNA Screen Pending RPR Lyme Specimen Source 06/19/20 06/19/20 06/19/20 07:08 07:08 07:17 Sodium Potassium Chloride Carbon Dioxide Anion Gap BUN Creatinine Est Cr Clr Drug Dosing Est GFR ( Amer) Est GFR (Non-Af Amer) BUN/Creatinine Ratio Glucose Calcium Total Bilirubin AST ALT Alkaline Phosphatase Ammonia 24.9 Total Protein Albumin Globulin Albumin/Globulin Ratio Vitamin B6 Cortisol AM Sample 17.91 Ur [place] Porphobilinogen U Porphobilinogen Intrp Fld Lyme DNA (PCR) Fluid Comment CSF Appearance CSF Color Xanthrochromic CSF WBC CSF RBC CSF Cell Count Tube # CSF Chemistry Tube # CSF Glucose CSF Total Protein CSF Albumin CSF IgG CSF IgG Index CSF IgG Synthesis Rate CSF Myelin Basic Protein CSF IgG Oligoclonal Bnd CSF C.neoform/gat PCR CSF CMV DNA (PCR) CSF Enterovirus (PCR) CSF E. coli K1 (PCR) CSF H. influenzae (PCR) CSF HSV I (PCR) CSF HSV II (PCR) CSF HHV 6 (PCR) CSF L.monocytogenes PCR CSF N. meningitidis PCR CSF Parechovirus (PCR) CSF S. agalactiae (PCR) CSF S. pneumoniae (PCR) CSF VZV DNA (PCR) IgG Albumin (CHIDI) UNA Screen RPR Pending Lyme Specimen Source 06/19/20 06/19/20 06/19/20 15:08 15:08 15:08 Sodium Potassium Chloride Carbon Dioxide Anion Gap BUN Creatinine Est Cr Clr Drug Dosing Est GFR ( Amer) Est GFR (Non-Af Amer) BUN/Creatinine Ratio Glucose Calcium Total Bilirubin AST ALT Alkaline Phosphatase Ammonia Total Protein Albumin Globulin Albumin/Globulin Ratio Vitamin B6 Cortisol AM Sample Ur [place] Porphobilinogen U Porphobilinogen Intrp Fld Lyme DNA (PCR) Fluid Comment CSF Appearance CSF Color Xanthrochromic CSF WBC CSF RBC CSF Cell Count Tube # CSF Chemistry Tube # CSF Glucose CSF Total Protein Cancelled CSF Albumin Pending CSF IgG Pending CSF IgG Index Pending CSF IgG Synthesis Rate Pending CSF Myelin Basic Protein Pending CSF IgG Oligoclonal Bnd Pending CSF C.neoform/gat PCR Not Detected CSF CMV DNA (PCR) Not Detected CSF Enterovirus (PCR) Not Detected CSF E. coli K1 (PCR) Not Detected CSF H. influenzae (PCR) Not Detected CSF HSV I (PCR) Not Detected CSF HSV II (PCR) Not Detected CSF HHV 6 (PCR) Not Detected CSF L.monocytogenes PCR Not Detected CSF N. meningitidis PCR Not Detected CSF Parechovirus (PCR) Not Detected CSF S. agalactiae (PCR) Not Detected CSF S. pneumoniae (PCR) Not Detected CSF VZV DNA (PCR) Not Detected IgG Pending Albumin (CHIDI) Pending UNA Screen RPR Lyme Specimen Source 06/19/20 06/19/20 15:08 15:08 Sodium Potassium Chloride Carbon Dioxide Anion Gap BUN Creatinine Est Cr Clr Drug Dosing Est GFR ( Amer) Est GFR (Non-Af Amer) BUN/Creatinine Ratio Glucose Calcium Total Bilirubin AST ALT Alkaline Phosphatase Ammonia Total Protein Albumin Globulin Albumin/Globulin Ratio Vitamin B6 Cortisol AM Sample Ur [place] Porphobilinogen U Porphobilinogen Intrp Fld Lyme DNA (PCR) Pending Fluid Comment CSF Appearance Clear CSF Color Colorless Xanthrochromic No xanthochromia CSF WBC 0 CSF RBC 0 CSF Cell Count Tube # 3 CSF Chemistry Tube # 1 CSF Glucose 50 CSF Total Protein 31.5 CSF Albumin CSF IgG CSF IgG Index CSF IgG Synthesis Rate CSF Myelin Basic Protein CSF IgG Oligoclonal Bnd CSF C.neoform/gat PCR CSF CMV DNA (PCR) CSF Enterovirus (PCR) CSF E. coli K1 (PCR) CSF H. influenzae (PCR) CSF HSV I (PCR) CSF HSV II (PCR) CSF HHV 6 (PCR) CSF L.monocytogenes PCR CSF N. meningitidis PCR CSF Parechovirus (PCR) CSF S. agalactiae (PCR) CSF S. pneumoniae (PCR) CSF VZV DNA (PCR) IgG Albumin (CHIDI) UNA Screen RPR Lyme Specimen Source Pending PG Care Time/CCT Total # of Minutes Spent Total Time Spent with Patient: Total time spent is greater than 50% in coordination of care (as documented) at patient's floor/unit and/or counseling patient: Coding Level of Care Code 00880 Subseq Hosp Care Lvl 2 Diagnoses Confusion R41.0 Urinary tract infection N30.00 Urinary tract infection type: acute cystitis Hematuria presence: without hematuria (1) Urinary tract infection Urinary tract infection type: acute cystitis Hematuria presence: without hematuria Qualified Code(s): N30.00 - Acute cystitis without hematuria
[2020-06-20] MEDS: THIAMINE HCL 500 MG in SODIUM CHLORIDE 0.9% 50 ML IV SCH ×3 (07:48→19:45)
[2020-06-20 09:53] LABS: Lyme Ab IgG w/WB Rflx Negative (Negative)
[2020-06-20 10:15] LABS: Lyme Ab IgM w/WB Rflx Positive (Negative)
[2020-06-20] MEDS ORDERED: cefTRIAXone SODIUM 2,000 MG in DEXTROSE 5% 50 ML IV SCH (10:45)
--- NOTE | 2020-06-20 11:34 | Neurology Progress Note ---
Date of Service June 20, 2020 Assessment & Plan (1) Altered mental status: Encephalopathy, modestly improved. Positive Lyme IgM serology. Western blot pending. Unremarkable brain MRI, EEG, and lumbar puncture thus far. SHIPPING CHECKER Lyme disease possible although patient CSF analysis is unremarkable thus far. No cells or elevation in protein. Would continue with Rocephin, evaluate Western blot when available to determine if additional antimicrobial therapy is needed. (Would consider obtaining an autoimmune encephalitis antibody evaluation on remaining CSF sample. However, this specific test from [facility] requires 3.5 mL of CSF. Pathology informed me there is only 1 mL of CSF available. Pathology department will contact [facility] to determine if this quantity may be sufficient. The comparable [facility] test requires 4 mm of CSF.) It is notable that this patient's brain MRI and EEG are unremarkable potentially making limbic encephalitis somewhat less likely although certainly not excluded. If there is insufficient CSF to proceed with autoimmune encephalitis antibody evaluation, and if patient's clinical status deteriorates, would consider obtaining a repeat contrast-enhanced brain MRI and repeat lumbar puncture. In that context, however, transfer to a tertiary center may also be reasonable, as treatment of autoimmune encephalitis may require plasmapheresis and [place] level care given the relative rarity of this condition. Admission and Anticipated Discharge Date Admission Date: June 18, 2020 Subjective Follow-up for encephalopathy The patient remains confused this morning, although is moderately improved compared with yesterday. She still exhibits some difficulty following multistep commands and with processing speed. Her attention seems much improved. She is no longer exhibiting muscular twitching or tremors, at least at this time. She denies headache, fever, or other systemic symptoms currently. She remarks that she slept very well overnight. She still complains of some modest difficulty with her cognitive processing in general. No specific difficulty with speech or language comprehension. Review of Systems Neurologic: + lack of coordination, + abnormal movements and + confusion; no localized weakness, no loss of sensation and no headache(s) Psychiatric: no depression and no anxiety Results & Data ([facility]) Vital Signs (Past 12 Hours) Vital Signs Temp Pulse Resp BP Pulse Ox 06/20/20 07:06 36.6 C 89 16 101/62 100 Laboratory Results Lumbar puncture/CSF analysis, clear, colorless, no xanthochromia, WBC 0, RBC 0, protein 31.5, encephalitis panel negative Serum Lyme screen positive IgM antibodies. Western blot pending. (Was started on Rocephin.) Diagnostic Findings An EEG completed yesterday was within normal limits. No epileptiform abnormalities. No changes suggestive of encephalopathy. Noncontrast brain MRI completed yesterday was within normal limits as well. No signal abnormalities within the brain parenchyma. No imaging changes that would otherwise suggest encephalitis, demyelinating disease, or stroke. Exam (Neuro) Neurologic: Oriented to:: Person, Place and Time Memory: Short Term Intact and Remote Intact Attention: Span Intact; negative Concentration Intact Speech Fluency: negative Dysarthria Speech Aphasia: negative Aphasia Fund of Knowledge: Vocabulary Cranial Nerves: Normal II, III, IV, , V, VII, VIII, IX, X, XI and XII Motor Strength: Normal Lower Extremities and Normal Upper Extremities Motor Tone: Normal Lower Extremities and Normal Upper Extremities Coordination: Normal Details: Has some difficulty with multistep tasks. Had some difficulty correctly identifying specific fingers. No acalculia. No left right confusion. Exhibited some slow cognitive processing speed. No aphasia. No tremors or abnormal movements observed. Coding Level of Care Code 87729 Subseq Hosp Care Lvl 3 Diagnoses Altered mental status R41.82
--- NOTE | 2020-06-20 13:29 | Psychiatric Progress Note ---
Date of Service June 20, 2020 Impression / Recommendations Impression Dr. Nadja Mohan was directly involved in review and discussion of the patient's case and participated in medical decision making regarding treatment recommendations. RECOMMENDATIONS: 06/19/20 - Psychiatric consultation requested by our hospitalist team to evaluate patient for "psychosis." Case reviewed with on-call psychiatrist due to disorganized/anxious behavior interfering with diagnostic testing, medication recommendations given to assist with cooperation for testing. Neurology also involved in patient's care and additional studies have been recommended to further work-up altered mental status concern. - Pt denies symptoms of a primary mood or thought disorder. Denies feeling "clinically depressed" and denies hallucinations, delusions, or other signs of psychosis. Pt does seem confused and thought process seems a bit disorganized. Agree with further work-up to investigate cause of altered mental status. Pt reports sleep depravation as a concern, but then denies acute changes in her sleep pattern. Will continue attempts to gather collateral information, but presently patient's presentation does not seem to be clearly related to a primary psychiatric condition. - Upon initial case review with on-call psychiatrist, concern was raised for possible overdose. H&P suggesting pill count of newly prescribed trazodone was completed and it looks as though patient only took one tablet. Pt denies overuse or misuse of any OTC medications or supplements. - Appreciate the opportunity to participate in the care of this patient. Please reach out to our service with any additional questions or updates. 06/20/20 - Received updates from patient's PCP regarding concern that patient may be minimizing level of anxiety, concern for symptoms of OCD vs. OCPD. This provider assess further today for reports of symptoms consistent with these diagnoses. Pt continues to deny these concerns - unclear if minimizing or truly does not perceive that these concerns are present. Pt denies feeling as though any of these concerns require medication adjustments at this time. - Recommend resuming trazodone to assist with sleep, as this continues to be a concern for the patient. Will order home dose of 25mg to be continued here in the hospital now that her mental status has improved. - Pt did agree to referral for outpatient therapy - will ask liaison nurse to follow-up with patient to provide resources and begin therapy referral (1) Altered mental status: (2) Urinary tract infection: Risk Factors Assessment Do You Have Access To A Gun?: No Interval History Identifying Information 34-year-old female admitted medically on 06/18/2020 after presenting to the ED due to confusion and abnormal behavior. Psychiatry consulted due to concern patient may be presenting with psychosis. [facility] Neurology was also consulted. Chief Complaint "Pretty good." Review of Systems Notes Constitutional: denied Cardiovascular: denied Respiratory: denied Gastrointestinal: denied Neurological: denied Psychiatric: denies symptoms other than stated above Total of at least 10 systems reviewed, pertinent positives as above and in HPI. Subjective Subjective Patient's case was reviewed and discussed during morning report with psychiatric nurse liaison and supervising psychiatrist. It was reported that level of confusion has improved since initial admission. Per patient report, sleep was improved last evening. Pt was cooperative with visit with psychiatric nurse liaison. This provider did have the opportunity to gather collateral information from the patient's PCP, who expressed concern for possible OCD vs. OCPD symptoms which are felt to be contributing to poor sleep. Specific reports include obsessive behavior surrounding need to stay busy and keep working. 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 Pt was seen today in follow-up to assess progress since admission. Conversation today seemed much more fluid, patient not appearing as distracted. Pt stated that she is feeling "pretty good". She reports feeling as though her energy level has improved and she is not feeling dizzy. Pt is able to admit that her confusion seems to be improving as well - "the flow of what I do is smoother, if that makes sense." Pt admits that sleep is still a concern for her, and something she plans to work out with her PCP. Pt agreed to resuming low-dose trazodone in this setting, now that her mental status has improved. We reviewed more about the patient's reports of occasional sadness or anxiety. Again, the patient does not seem too troubled by these concerns. She admits "psychologically I'm inclined to doubt myself, like, 'did I communicate that well?' or whatever. But I feel I brush that off pretty quickly." Additional follow-up questions, more along the lines of OCD criteria were reviewed, with patient denying concerns related to obsessive thinking or compulsive behaviors. She repeatedly states - "at least nothing that I think I need medication for." Pt is alert and oriented x4. She continues to demonstrate abnormal behaviors during our conversation. Repeatedly having fully body shaking, as if shivering. Pt also has a right-sided facial twitch, particularly affecting her right cheek. Pt was also observed at one point to be zoning out during our conversation, followed by a brief episode of shivering, an eye roll, rapid blinking, and then returning to conversation. Pt was asked about the episode and did not have anything significant to say about it. Pt denies SI as well as other needs or concerns. She did admit she would be willing for referrals for outpatient therapy. Physical Exam Psychiatric Orientation: alert, oriented x 3 and cooperative Apperance: appropriately dressed, appropriately groomed and appeared stated age Eye Contact: good eye contact Motor Behavior: + abnormal motor movements pt continues to display episodes of full-body tremor, as if shivering. She also has a notable facial twitch, most commonly observed by her right cheek. At one point, the patient was observed to seem attentive to conversation, but then displayed a full body shake as if bringing herself to alertness then rolled her eyes, blinked a few times, and returned to staring at this provider. Speech: normal rate/rhythm/volume of speech Affect: + anxious affect Mood: no depressed mood and no anxious mood Thought Process: goal directed thought process and clear/coherent thought process Thought Content: reality based without delusions; no hopelessness and no worthlessness Suicidal Thoughts: denies suicidal thoughts and denies suicidal intent Homicidal Thoughts: denies homicidal thoughts Hallucinations: no auditory hallucinations and no visual hallucinations Cognition: attention grossly intact and language grossly intact Estimated Intelligence: consistent with education level Insight: + fair insight Judgement: + fair judgement Vital Signs (Past 24 Hours) Last Vital Signs Temp 36.6 C 06/20/20 07:06 Pulse 89 06/20/20 07:06 Resp 16 06/20/20 07:06 BP 101/62 06/20/20 07:06 Pulse Ox 100 06/20/20 07:06 Results & Data ([facility]) Laboratory Results Laboratory Results - last 24 hr 06/19/20 06/19/20 06/19/20 07:08 15:08 15:08 Whole Bld Vitamin B1 Fld Lyme DNA (PCR) Fluid Comment CSF Appearance CSF Color Xanthrochromic CSF WBC CSF RBC CSF Cell Count Tube # CSF Chemistry Tube # CSF Glucose CSF Total Protein Cancelled CSF Albumin CSF IgG CSF IgG Index CSF IgG Synthesis Rate CSF Myelin Basic Protein CSF IgG Oligoclonal Bnd CSF C.neoform/gat PCR Not Detected CSF CMV DNA (PCR) Not Detected CSF Enterovirus (PCR) Not Detected CSF E. coli K1 (PCR) Not Detected CSF H. influenzae (PCR) Not Detected CSF HSV I (PCR) Not Detected CSF HSV II (PCR) Not Detected CSF HHV 6 (PCR) Not Detected CSF L.monocytogenes PCR Not Detected CSF N. meningitidis PCR Not Detected CSF Parechovirus (PCR) Not Detected CSF S. agalactiae (PCR) Not Detected CSF S. pneumoniae (PCR) Not Detected CSF VZV DNA (PCR) Not Detected Arsenic Lead Mercury IgG Albumin (CHIDI) RPR Nonreactive Lyme Specimen Source Lyme Disease IgG Ab Lyme IgG (Western Blot) Lyme IgG 18 kDa Band Lyme IgG 23 kDa Band Lyme IgG 28 kDa Band Lyme IgG 30 kDa Band Lyme IgG 39 kDa Band Lyme IgG 41 kDa Band Lyme IgG 45 kDa Band Lyme IgG 58 kDa Band Lyme IgG 66 kDa Band Lyme IgG 93 kDa Band Lyme IgM Ab (WB) Lyme Disease IgM Ab Lyme IgM 23 kDa Band Lyme IgM 39 kDa Band Lyme IgM 41 kDa Band 06/19/20 06/19/20 06/19/20 15:08 15:08 15:49 Whole Bld Vitamin B1 Fld Lyme DNA (PCR) Cancelled Pending Fluid Comment CSF Appearance Clear CSF Color Colorless Xanthrochromic No xanthochromia CSF WBC 0 CSF RBC 0 CSF Cell Count Tube # 3 CSF Chemistry Tube # 1 CSF Glucose 50 CSF Total Protein 31.5 CSF Albumin Pending CSF IgG Pending CSF IgG Index Pending CSF IgG Synthesis Rate Pending CSF Myelin Basic Protein Pending CSF IgG Oligoclonal Bnd Pending CSF C.neoform/gat PCR CSF CMV DNA (PCR) CSF Enterovirus (PCR) CSF E. coli K1 (PCR) CSF H. influenzae (PCR) CSF HSV I (PCR) CSF HSV II (PCR) CSF HHV 6 (PCR) CSF L.monocytogenes PCR CSF N. meningitidis PCR CSF Parechovirus (PCR) CSF S. agalactiae (PCR) CSF S. pneumoniae (PCR) CSF VZV DNA (PCR) Arsenic Lead Mercury IgG Pending Albumin (CHIDI) Pending RPR Lyme Specimen Source Cancelled Pending Lyme Disease IgG Ab Lyme IgG (Western Blot) Lyme IgG 18 kDa Band Lyme IgG 23 kDa Band Lyme IgG 28 kDa Band Lyme IgG 30 kDa Band Lyme IgG 39 kDa Band Lyme IgG 41 kDa Band Lyme IgG 45 kDa Band Lyme IgG 58 kDa Band Lyme IgG 66 kDa Band Lyme IgG 93 kDa Band Lyme IgM Ab (WB) Lyme Disease IgM Ab Lyme IgM 23 kDa Band Lyme IgM 39 kDa Band Lyme IgM 41 kDa Band 06/20/20 06/20/20 06/20/20 08:30 08:30 08:30 Whole Bld Vitamin B1 Pending Fld Lyme DNA (PCR) Fluid Comment CSF Appearance CSF Color Xanthrochromic CSF WBC CSF RBC CSF Cell Count Tube # CSF Chemistry Tube # CSF Glucose CSF Total Protein CSF Albumin CSF IgG CSF IgG Index CSF IgG Synthesis Rate CSF Myelin Basic Protein CSF IgG Oligoclonal Bnd CSF C.neoform/gat PCR CSF CMV DNA (PCR) CSF Enterovirus (PCR) CSF E. coli K1 (PCR) CSF H. influenzae (PCR) CSF HSV I (PCR) CSF HSV II (PCR) CSF HHV 6 (PCR) CSF L.monocytogenes PCR CSF N. meningitidis PCR CSF Parechovirus (PCR) CSF S. agalactiae (PCR) CSF S. pneumoniae (PCR) CSF VZV DNA (PCR) Arsenic Pending Lead Pending Mercury Pending IgG Albumin (CHIDI) RPR Lyme Specimen Source Lyme Disease IgG Ab Negative Lyme IgG (Western Blot) Pending Lyme IgG 18 kDa Band Pending Lyme IgG 23 kDa Band Pending Lyme IgG 28 kDa Band Pending Lyme IgG 30 kDa Band Pending Lyme IgG 39 kDa Band Pending Lyme IgG 41 kDa Band Pending Lyme IgG 45 kDa Band Pending Lyme IgG 58 kDa Band Pending Lyme IgG 66 kDa Band Pending Lyme IgG 93 kDa Band Pending Lyme IgM Ab (WB) Pending Lyme Disease IgM Ab Positive A Lyme IgM 23 kDa Band Pending Lyme IgM 39 kDa Band Pending Lyme IgM 41 kDa Band Pending Current Inpatient Medications Current Inpatient Medications: Current Inpatient Medications Acetaminophen (Acetaminophen 325 Mg Tab) 650 mg PO Q4H PRN PRN Reason: pain/fever Stop: 07/18/20 17:14 Acetaminophen (Acetaminophen 500 Mg Tab) 1,000 mg PO Q4H PRN PRN Reason: Mild Pain Stop: 06/21/20 15:20 Last Admin: 06/19/20 20:10 Dose: 1,000 mg Documented by: Al Hydrox/Mg Hydrox/Simethicone (Aluminum/Magnesium Susp 30 Ml Udc) 30 ml PO Q6H PRN PRN Reason: Dyspepsia Stop: 07/18/20 17:14 Lorazepam (Ativan) 1 mg in 2 mls @ 1 mls/min IV Q4H PRN PRN Reason: Agitation Stop: 07/18/20 17:14 Ceftriaxone Sodium 2,000 mg/ (Dextrose) 70 mls @ 100 mls/hr IV Q24H ELSY; Protocol Stop: 06/23/20 17:59 Last Infusion: 06/19/20 18:42 Dose: Infused Documented by: Thiamine HCl 500 mg/ Sodium (Chloride) 55 mls @ 208 mls/hr IV TID ELSY Stop: 06/21/20 20:59 Last Infusion: 06/20/20 08:27 Dose: Infused Documented by: Ondansetron HCl (Ondansetron Inj 2 Mg/Ml 2 Ml Vial) 4 mg IV Q6H PRN PRN Reason: Nausea Stop: 07/18/20 17:14 Last Admin: 06/19/20 20:10 Dose: 4 mg Documented by: (1) Urinary tract infection Hematuria presence: without hematuria Urinary tract infection type: acute cystitis Qualified Code(s): N30.00 - Acute cystitis without hematuria
[2020-06-20] MEDS: cefTRIAXone SODIUM 2,000 MG in DEXTROSE 5% 50 ML IV SCH (17:42)
[2020-06-20] MEDS ORDERED: traZODone HCL 50 MG TAB PO PRN (20:28)
--- NOTE | 2020-06-20 22:03 | Hospitalist Progress Note ---
Date of Service June 20, 2020 Assessment & Plan (1) Confusion: IMPROVED. Thus far extensive w/u negative except for +lyme screen (see below). MRI brain wnl. LP cell counts/culture wnl. No evidence of infectious/inflammatory state in the CSF. Urine culture negative. EEG negative. Psych does not feel this is primary psychiatric in origin although she does endorse anxiety and insomnia. B12 level wnl. Ammonia level wnl. TSH level wnl. RPR negative. Cortisol wnl. B6 and B1 pending. Heavy metal screen pending. MS panel from CSF sent but likely to be normal given her normal total protein and fluid studies. COVID negative but could consider repeating and/or getting COVID ab's ("brain fog" is common post-COVID). (2) Urinary tract infection: Unlikely, culture negative. No symptoms. Rocephin is for Lyme at this point (see below). (3) Positive Lyme disease serology: If she indeed has Lyme and Western blot confirms such she would be either early stage or early disseminated stage. IgG is negative. 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 [id number] Lyme CSF was sent. Given that the massive work-up was negative and this could potentially explain some of her symptoms I would be in favor of treating. Cont shannon while here; at discharge send home with pedro luis BID while awaiting Western blot. 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 doesn't recall tick bites Review of Systems Constitutional: no fever, no chills, no body aches, no fatigue, no weakness and no anorexia Respiratory: no cough and no dyspnea Cardiovascular: no chest pain Gastrointestinal: no abdominal pain, no nausea, no vomiting and no diarrhea/loose stools Physical Exam Constitutional: well developed and well nourished; no acute distress and no altered mental status (a/o x 3; could name months of the year going backwards in correct order) Eyes: PERRL; no nystagmus ENMT: external ear and nose normal, oropharynx normal Respiratory: normal respiratory effort, lungs clear to auscultation Cardiovascular: RRR, no murmur, no edema Heart Sounds: normal S1 and normal S2 Vessels: posterior tibial pulses present and dorsalis pedis pulses present; no JVD Gastrointestinal (Abdomen): normal bowel sounds, soft, nontender, no hepatosplenomegaly Skin: no rashes, warm and dry Neurologic: Speech / Cognition: normal speech Results & Data Results & Data ([facility]) Vital Signs (Past 12 Hours) Vital Signs Temp Pulse Resp BP Pulse Ox 06/20/20 14:58 37.0 C 89 18 107/84 100 Laboratory Results Laboratory Results - last 24 hr 06/19/20 06/19/20 06/19/20 07:08 15:08 15:49 Whole Bld Vitamin B1 Fld Lyme DNA (PCR) Cancelled Pending CSF Albumin Pending CSF IgG Pending CSF IgG Index Pending CSF IgG Synthesis Rate Pending CSF Myelin Basic Protein Pending CSF IgG Oligoclonal Bnd Pending Arsenic Lead Mercury IgG Pending Albumin (CHIDI) Pending RPR Nonreactive Lyme Specimen Source Cancelled Pending Lyme Disease IgG Ab Lyme IgG (Western Blot) Lyme IgG 18 kDa Band Lyme IgG 23 kDa Band Lyme IgG 28 kDa Band Lyme IgG 30 kDa Band Lyme IgG 39 kDa Band Lyme IgG 41 kDa Band Lyme IgG 45 kDa Band Lyme IgG 58 kDa Band Lyme IgG 66 kDa Band Lyme IgG 93 kDa Band Lyme IgM Ab (WB) Lyme Disease IgM Ab Lyme IgM 23 kDa Band Lyme IgM 39 kDa Band Lyme IgM 41 kDa Band 06/20/20 06/20/20 06/20/20 08:30 08:30 08:30 Whole Bld Vitamin B1 Pending Fld Lyme DNA (PCR) CSF Albumin CSF IgG CSF IgG Index CSF IgG Synthesis Rate CSF Myelin Basic Protein CSF IgG Oligoclonal Bnd Arsenic Pending Lead Pending Mercury Pending IgG Albumin (CHIDI) RPR Lyme Specimen Source Lyme Disease IgG Ab Negative Lyme IgG (Western Blot) Pending Lyme IgG 18 kDa Band Pending Lyme IgG 23 kDa Band Pending Lyme IgG 28 kDa Band Pending Lyme IgG 30 kDa Band Pending Lyme IgG 39 kDa Band Pending Lyme IgG 41 kDa Band Pending Lyme IgG 45 kDa Band Pending Lyme IgG 58 kDa Band Pending Lyme IgG 66 kDa Band Pending Lyme IgG 93 kDa Band Pending Lyme IgM Ab (WB) Pending Lyme Disease IgM Ab Positive A Lyme IgM 23 kDa Band Pending Lyme IgM 39 kDa Band Pending Lyme IgM 41 kDa Band Pending PG Care Time/CCT Total # of Minutes Spent Total Time Spent with Patient: Total time spent is greater than 50% in coordination of care (as documented) at patient's floor/unit and/or counseling patient: Coding Level of Care Code 63431 Subseq Hosp Care Lvl 2 Diagnoses Confusion R41.0 Urinary tract infection N30.00 Hematuria presence: without hematuria Urinary tract infection type: acute cystitis Positive Lyme disease serology R76.8 Underweight R63.6 (1) Urinary tract infection Hematuria presence: without hematuria Urinary tract infection type: acute cystitis Qualified Code(s): N30.00 - Acute cystitis without hematuria
--- NOTE | 2020-06-21 10:27 | Neurology Progress Note ---
Date of Service June 21, 2020 Assessment & Plan (1) Altered mental status: (2) Motor tic disorder: Patient's encephalopathy continues to improve. She does appear to have motor tics, chronicity uncertain, would defer on symptomatic treatment at this time. The significance of the positive Lyme IgM screening antibody is uncertain, Western blot pending. Would continue with Rocephin for the time being. If patient's clinical status deteriorates would recommend a repeat contrast- enhanced brain MRI. Clinical suspicion for encephalitis very low at this point in time. I am uncertain if patient's presentation may be related to chronic insomnia, adverse reaction to trazodone, and/or underlying unrecognized psychiatric illness. Psychiatry following as well. Admission and Anticipated Discharge Date Admission Date: June 18, 2020 Subjective Follow-up for altered mental status Patient's confusion continues to improve. Is more attentive and interactive today. Does display intermittent involuntary motor tics of the facial muscles. Denies headache, dizziness, vertigo, vision disturbance, focal weakness, or incoordination. Is able to ambulate without difficulty. Neurologic testing thus far including MRI, EEG, and LP/CSF analysis unremarkable. Serum Lyme IgM screening positive, Western blot pending. Patient continues with Rocephin. Discussed CSF testing with lab staff. Does not have adequate remaining CSF sample to proceed with autoimmune encephalitis antibody panel. Review of Systems Constitutional: no fever and no chills Eyes: no blind spots and no diplopia Ear, Nose, Mouth, Throat: no hearing loss Neurologic: + abnormal movements, + behavioral changes and + confusion; no localized weakness, no loss of sensation and no headache(s) Results & Data ([facility]) Vital Signs (Past 12 Hours) Vital Signs Temp Pulse Resp BP BP Pulse Ox 06/21/20 07:03 36.9 C 67 16 110/78 98 06/20/20 23:02 36.7 C 69 18 102/71 98 Exam (Neuro) Constitutional: well developed; no acute distress Neurologic: Oriented to:: Person, Place and Time Memory: Short Term Intact and Remote Intact Attention: Span Intact; negative Concentration Intact Speech Fluency: negative Dysarthria Speech Aphasia: negative Aphasia Fund of Knowledge: Current Events, Past History and Vocabulary Cranial Nerves: Normal II, III, IV, , V, VII, VIII, IX, X, XI and XII Motor Strength: Normal Lower Extremities and Normal Upper Extremities Motor Tone: Normal Lower Extremities and Normal Upper Extremities Coordination: negative Limited Balance, Dysdiadochokinesia, Finger-Nose Abnormal and Heel-Vega Abnormal Gait: Normal Station and Gait Details: Intermittent facial motor tics observed, 3 out of 3 delayed recall, no confabulation, 4 out of 5 spelling world backwards, no left right confusion, no finger anomia, no acalculia Coding Level of Care Code 29346 Subseq Hosp Care Lvl 2 Diagnoses Altered mental status R41.82 Motor tic disorder F95.8
--- NOTE | 2020-06-21 11:15 | Discharge Summary ---
Date of Service date of admission - June 18, 2020 date of discharge - June 21, 2020 Admission HPI Per Admitting Provider Patient arrived at the ER in company of her friend she is having unusual behavior similar to what would be considered with psychosis. Was seen by neurology who describes some ataxic episodes I did not see any of that when I evaluated her. He has tangential thinking frequently stopping in the middle of sentences and then changing subjects in an odd way. 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 She says she is had sleep deprivation for a long period of time. Most recently she was prescribed trazodone by her primary care provider patient was able to produce her trazodone bottle in the ER it looks like she took 1 pill of 25 mg the remainder of the pills are in the bottle. Emergency department physician attempted to get MRI scan per re commendations from neurology but she was unable to stay still for the MRI. There was some discussion about doing a sedated MRI but there is some concern that she may not be fit to consent for anesthesia to do the MRI or lumbar puncture. Patient did have a negative CT scan of her head and negative serologies exception of possible urinary tract infection present on admission. Principal Diagnosis 1. confusion/cognitive difficulties - improved 2. chronic insomnia 3. question of early stage Lyme disease - Western Blot pending Discharge Exam Constitutional well developed and well nourished; no acute distress and no altered mental status Eyes PERRL; no nystagmus ENMT external ear and nose normal, oropharynx normal Respiratory normal respiratory effort, lungs clear to auscultation Cardiovascular RRR, no murmur, no edema Heart Sounds: normal S1 and normal S2 Vessels: posterior tibial pulses present and dorsalis pedis pulses present; no JVD Gastrointestinal (Abdomen) normal bowel sounds, soft, nontender, no hepatosplenomegaly Skin no rashes, warm and dry Neurologic moves all extremities; no focal motor deficits Speech / Cognition: normal speech Psychiatric Orientation: alert and oriented x 3 Discharge Data Allergies Allergy/AdvReac Type Severity Reaction Status Date / Time No Known Allergies Allergy Unverified 06/18/20 10:02 Consultations [facility] Neurology Psychiatry Ordered Studies 06/18/20 09:48 CT head/brain wo con - no acute/chronic findings. 06/19/20 14:15 [place] lumbar puncture diagnostic 06/19/20 23:00 MR brain wo con - normal; no acute/chronic findings. Hospital Course (1) Confusion: Patient underwent an expansive work-up for this issue including - 1. MRI brain - wnl. 2. Lumbar puncture - 0 WBCs; 0 RBCS. Glucose/protein wnl. No evidence of infectious/inflammatory state in the CSF. 3. Urine culture - negative. 4. EEG - negative. 5. CT head - negative. 6. B12 level wnl. 7. Ammonia level wnl. 8. TSH level wnl. 9. RPR - negative. 10. Cortisol wnl. 11. COVID PCR - negative. Vitamin B1 and B6 levels were sent & pending at discharge. Heavy metal screen was sent & pending at discharge. MS panel from CSF sent but likely to be normal given her normal total protein and fluid studies A Lyme screen was POSITIVE for IgM; IgG was negative. Western blot was sent & pending at discharge. She did receive 3 doses of IV rocephin in the event she has early stage or early disseminated Lyme disease. At discharge, while awaiting the Western blot, she was sent home with 11 additional days of doxycycline 100mg PO BID. If the Lyme Western blot returns negative along with the other studies that are pending it is very possible that her recent confusion and cognitive issues are primarily psychiatric in origin. Lastly, although her COVID PCR was negative, perhaps she had had COVID earlier this year and she was having post-COVID confusion/cognitive impairment? Could consider a COVID serum antibody test to look for previous COVID illness. Patient was encouraged to follow-up with psychology for management of her chronic anxiety & insomnia. She will continue on trazodone prn for insomnia. She will also complete a course of thiamine supplementation while awaiting her vitamin B1 level. (2) Urinary tract infection: ruled out. Urine culture ultimately returned negative. (3) Positive Lyme disease serology: Lyme screen with POSITIVE IgM and negative IgG. Western blot sent and pending at discharge. Received 3 days of IV rocephin while here. Sent home on 11 days more of doxycycline 100mg BID while awaiting confirmatory testing. See above in "confusion." (4) Underweight: BMI 18.5 (5) Motor tic disorder: Tics of facial muscles noted throughout the stay. Follow-up with PCP for this. (6) Insomnia: Trazodone prn. She has no history of manic spells / bipolar disorder. Total Time Total Time Spent Total Time Spent (In Minutes): 40 Total Time Includes: Examination of the Patient, Discharge Planning, Medication Reconciliation and Communication With Other Providers Discharge Plan Discharge Items Patient Disposition: Home - Self-Care Reason For Visit: PSYCHOSIS/CONFUSION Discharge Diagnosis: Confusion - exact cause uncertain. MRI brain, lumbar puncture, EEG, and a battery tests all normal EXCEPT you tested positive for Lyme Disease. Confirmatory Lyme testing is pending at time of discharge. Unable to rule out chronic insomnia and anxiety contributing to your confusion. Activity: Resume your previous activity Activity Comment: gradually resume normal activities over the next 2-3 days Non-emergency contact: Primary Care Provider Call non-emergency contact if: you have any medication questions, your symptoms worsen and you have a fever Follow-up/Referrals: Thien Joyner MD [Primary Care Provider] - 07/03/20 10:30 am Diet: Regular Addtl Attending Provider Instructions: Ms Beverly, You were admitted to the hospital for confusion, thinking difficulties, etc. You underwent extensive testing as outlined in "discharge diagnoses" above. Fortunately the MRI brain was normal (no stroke, brain tumor, etc). The spinal tap results were normal. We saw no evidence of meningitis or encephalitis (infections of the lining of the brain or the brain itself, respectively). Most labs were normal except for your Lyme screening test which returned positive. If you indeed have Lyme disease you are likely very early in the Lyme disease course. A confirmatory Lyme test has been sent and is pending at time of discharge. We otherwise found no evidence of urinary infection, pneumonia, or COVID illness. You were seen by the neurologist and psychologist. We are recommending that you establish care with a psychologist/counselor to discuss strategies to help with your poor sleep, anxiety, etc. Other recommendations: 1. doxycycline antibiotic for possible Lyme - 100mg twice daily for 11 more days. Start this upon return home. * occasionally doxycycline causes heartburn * if you spend a lot of time in the sun over the next 2 weeks you could potentially get a rash while on doxycycline; thus, cover up and use sunscreen liberally over the next 2 weeks 2. thiamine (vitamin B1) supplement - 200mg daily for 30 days. 3. ok to use the trazodone at bedtime as needed for sleep. Follow-up with Dr Joyner in June as scheduled. Please reach out to any local psychologist/counselor for counseling. The [facility] on the [facility] has counselors for your needs. Return to [facility] if - * you have a severe headache that worsens with sitting or standing * you develop confusion / memory difficulties again * you have weakness of any limb, difficulty speaking or swallowing, difficulty walking or balance issues, etc * you develop fevers over 100.5 degrees * any other concerns Continue to feel better! I will update you after discharge in about a week with your additional/pending Lyme test and other studies. -Dr Malin Pending Studies at Discharge: Yes Studies:: confirmatory lyme testing; vitamin B1 and B6 levels; heavy metal screen; certain labs from the spinal tap Stand-Alone Forms: [facility], Smoking Cessation Medications and DC Order Prescriptions: New thiamine HCl (vitamin B1) 100 mg tablet 200 mg PO DAILY 30 Days Qty: 60 RF: 0 doxycycline hyclate 100 mg tablet 100 mg PO BID 11 Days Qty: 22 RF: 0 Continued trazodone 50 mg tablet 25 mg PO HS RF: 0 Discharge Orders: Discharge Order (Routine); Ordered 06/21/20 Ordered By: Kirk Malin Admission Data Admit Date/Time: 06/18/20 16:06 Attending Provider: Kirk Malin Admit Provider: Francisco Sloan Primary Care Provider: Thien Joyner Other Providers: Nicolasa Wood ; Francisco Sloan ; Will Kennedy Other Interventions: Discharge Summary Assessment (RN) Last Done: 06/21/20 12:15 Coding Level of Care Code D/C Day Management >30 mins Diagnoses Confusion R41.0 Urinary tract infection N30.00 Hematuria presence: without hematuria Urinary tract infection type: acute cystitis Positive Lyme disease serology R76.8 Underweight R63.6 Motor tic disorder F95.8 Insomnia G47.00
[2020-06-22 01:21] LABS: 18KDIGG Band NON-REACTIVE; 23KDIGG Band NON-REACTIVE; 23KDIGM Band NON-REACTIVE; 28KDIGG Band NON-REACTIVE; 30KDIGG Band NON-REACTIVE; 39KDIGG Band NON-REACTIVE; 39KDIGM Band NON-REACTIVE; 41KDIGG Band NON-REACTIVE; 41KDIGM Band NON-REACTIVE; 45KDIGG Band NON-REACTIVE; 58KDIGG Band NON-REACTIVE; 66KDIGG Band NON-REACTIVE; 93KDIGG Band NON-REACTIVE; Lyme Antibodies, WB IgG NEGATIVE (NEGATIVE); Lyme Antibodies, WB IgM NEGATIVE (NEGATIVE)
[2020-06-22 21:06] LABS: Porphobilinogen Ran Ur 0.102 mg/g creat (<0.22)
[2020-06-23 08:38] LABS: Anti Nuclear Antibody Screen POSITIVE (NEGATIVE); Vitamin B6 19.4 ng/mL (2.1-21.7)
[2020-06-26 07:21] LABS: Arsenic Blood <3 mcg/L (<23); Lead Blood <1 mcg/dL (<5); Mercury, blood <4 mcg/L (<=10)
--- NOTE | 2020-06-26 09:28 | Coding Query ---
CODING QUERY To promote full compliance with coding requirements relating to patient care, provider participation is requested in all cases of battery vent plug inserter uncertainty. Please assist us with the question(s) below: Coding Question(s): Patient admitted with altered mental status. Comprehensive workup nonrevealing - with exception of positive IgM Lyme . Western Blot test pending at time of discharge. Neuro progress notes document encephalopathy. Lumbar puncture negative . Patient given 3 doses IV Rocephin and discharged with 10 days of doxycline. Please document, if known or suspected the diagnosis responsible for patient's symptoms. Thanks for your help! Juan C Bishop [facility] Physician's Response(s): acute psychosis/encephalopathy - resolved. insomnia - chronic. anxiety - chronic. false positive lyme serology (western blot returned negative). thanks! Principal Diagnosis: "that condition established after study, to be chiefly responsible for occasioning the admission of the patient to the hospital for care." Co-Existing Principal Diagnosis: "when two or more diagnoses equally meet the criteria for principal diagnosis as determined by the circumstances of admission, diagnostic work up, and/or therapy provided, and the Alphabetic Index, Tabular List, or another coding guideline does not provide sequencing direction, any one of the diagnoses may be sequenced first." "When the physician has documented what appears to be a current diagnosis in the body of the record, but has not included the diagnosis in the final diagnostic statement, the physician should be asked whether the diagnosis should be added." (Source Coding Clinic 2 QTR90. p3-4) EMMANUEL
[2020-06-30 08:12] LABS: Albumin 4.1 g/dL (3.5-5.2); Albumin, CSF 13.7 mg/dL (8.0-42.0); IgG CSF 1.7 mg/dL (0.8-7.7); IgG Index, CSF 0.61 (<0.66); IgG Serum 839 mg/dL (600-1640); Lyme DNA PCR CSF or Synovial Not detected (Not Detected); Lyme DNA Source CSF; Myelin Basic Protein <2.0 mcg/L (2.0-4.0); Synthesis Rate, IgG CSF -1.1 mg/24 h (-9.9-3.3)
== END 2020-06-21 12:59 | disposition home or self-care (01) | DRG 885 ==
LOC: ED 09:08 → 3W 16:06 → SUATTDRO 16:06 → 3W 16:52